=== PATIENT | female | born 1965 | race Caucasian/White ===

== ENCOUNTER 2017-10-23 06:50 | Day surgery (SDC) | payer OTHER ==
[~2017-10-23] VITALS: Ht 162.6 cm; Wt 59.4 kg
[2017-10-23] MEDS ORDERED: LR 1,000 ML IV SCH (11:02)
[2017-10-23] MEDS ORDERED: MORPHINE 4 MG/ML INJ. SYRINGE IVP PRN ×3 (11:15)
[2017-10-23] MEDS ORDERED: METOCLOPRAMIDE HCL 10 MG/2 ML VIAL IVP PRN (11:15)
[2017-10-23] MEDS ORDERED: PROPOFOL 200MG/ 20ML VIAL (DIPRIVAN) IV ONE (11:40)
[2017-10-23] MEDS ORDERED: SEVOFLURANE 15 MIN GAS INH ONE (11:40)
[2017-10-23] MEDS ORDERED: NEOSTIGMINE METHYLSULFATE 1 MG/ML, 10 ML VIAL ONE (11:40)
[2017-10-23] MEDS ORDERED: fentaNYL CITRATE 250 MCG/5 ML AMP ONE (11:40)
[2017-10-23] MEDS ORDERED: BUPIVACAINE /EPINEPHRINE/PF 0.5% 30 ML VIAL INJ ONE (11:40)
[2017-10-23] MEDS ORDERED: MIDAZOLAM HCL 5 MG/ML VIAL (VERSED) IV ONE (11:40)
[2017-10-23] MEDS ORDERED: KETOROLAC TROMETHAMINE 30 MG VIAL ONE (11:40)
[2017-10-23] MEDS ORDERED: NS IRRIG SOLN 1000 ML IR ONE (11:40)
[2017-10-23] MEDS ORDERED: CLINDAMYCIN PHOSPHATE 600 mg/50mL D5W IV ONE (11:40)
[2017-10-23] MEDS ORDERED: ROCURONIUM BROMIDE 10 MG/ML (ZEMURON) ONE (11:40)
[2017-10-23] MEDS ORDERED: BUPIVACAINE /PF 0.25% 30 ML VIAL INJ ONE (11:40)
[2017-10-23] MEDS ORDERED: EPINEPHrine 1 MG/ML AMP ONE (11:40)
[2017-10-23] MEDS ORDERED: ONDANSETRON HCL 4 MG/2 ML VIAL ONE (11:40)
[2017-10-23] MEDS ORDERED: GLYCOPYRROLATE 0.2 MG/ML VIAL ONE (11:40)
[2017-10-23] MEDS ORDERED: LR 1,000 ML IV.SOLN IV ONE (11:40)
[2017-10-23] MEDS ORDERED: ONDANSETRON HCL 4 MG/2 ML VIAL IVP PRN (11:45)
[2017-10-23] MEDS ORDERED: OXYCODONE/ACETAMINOPHEN 5-325 TABLET PO PRN ×2 (11:45)
[2017-10-23] MEDS ORDERED: HYDROcodone/ACETAMIN 5-325 MG TAB (NORCO/ VICODIN) PO PRN (11:45)
[2017-10-23 13:04] VITALS: BP_SYST 112
== END 2017-10-23 14:12 | disposition home or self-care (01) ==
LOC: SDS 06:50
PROVIDERS: ATTEND Specialist
DX: N83.291 Other ovarian cyst, right side (principal); Z88.0 Allergy status to penicillin; Z88.8 Allergy status to other drugs, medicaments and biological substances; Z79.899 Other long term (current) drug therapy; N90.60 Unspecified hypertrophy of vulva; D64.9 Anemia, unspecified; M19.90 Unspecified osteoarthritis, unspecified site; G89.29 Other chronic pain; G62.9 Polyneuropathy, unspecified
CPT/HCPCS: 58661; 88305; C1727; C1782; J0171; J1885; J2250; J2405; J2704; J2710; J3010; J3490 ×4; J7120